=== PATIENT | male | born 2000 | race Hispanic/Latino ===

== ENCOUNTER 2022-05-01 20:09 | Emergency (ER) | payer OTHER, SELFPAY ==
--- NOTE | ~2022-05-01 | XR_ITS ---
EXAMINATION: XR foot LT min 3V DATE: 05/01/2022 20:43 INDICATION: Left foot pain, initial encounter TECHNIQUE: Dorsoplantar, lateral, and 2 oblique views of the left foot were obtained. COMPARISON: None. FINDINGS: There are acute, traumatic, closed, oblique shaft fractures of the second, third, and fourt h metatarsals. Fourth metatarsal fracture demonstrates one cortical width of lateral displacement of the distal fracture fragment. Bone alignment is otherwise normal. The joint spaces are maintained. No additional fracture is identified. There is dorsal soft tissue swelling of the foot overlying the fr actures. IMPRESSION: 1. Acute shaft fractures of the second, third, and fourth metatarsals. Reviewed, dictated and finalized at location [facility] [employer]
[2022-05-01 20:36] VITALS: BP 151/82; PULSE 112; RESP 18; TEMP 36.6; O2SAT 100
--- NOTE | 2022-05-01 21:36 | ED.LOWEXIN ---
HPI - Extremity Injury (Lower) General Chief Complaint: Extremity Injury, Lower Stated Complaint: foot injury Time Seen by Provider: 05/01/22 20:11 History of Present Illness HPI Narrative: Patient is a 21-year-old male who presents ER with left foot pain. Patient was cleaning an industrial mixer when he got his foot caught in the mixing mechanism. It was caught for 5 minutes. Has pain with attempting to bear weight. He has swelling to the foot and bruising to the lateral aspect of the dorsum. Reports some numbness in the left third digit. No additional injury or concern. He has no medical issues. She is not on any blood thinners. Related Data Allergies Allergy/AdvReac Type Severity Reaction Status Date / Time No Known Allergies Allergy Verified 05/01/22 20:43 Review of Systems Review of Systems: All systems reviewed & are unremarkable except as noted in HPI and below Musculoskeletal: Musculoskeletal: Denies back pain, Denies arthralgias and Denies joint swelling Comments: Foot pain and swelling Integumentary/Breasts: Skin/Breast: Denies rash and Denies skin ulcer Comments: Left foot bruise Neurologic: Denies syncope, Denies headache(s), Denies focal weakness and Reports numbness PMFSH Past Medical History Medical History (Updated 05/01/22 @ 23:09 by Michael Colby MD) Healthy adult male Surgical History Surgical History (Updated 05/01/22 @ 21:38 by Michael Colby MD) No history of previous surgery Exam Narrative: GENERAL: Well-appearing, well-nourished, and in no acute distress. HEAD: Normocephalic, atraumatic. ENT: Mucous membranes moist. EXTREMITIES: Tender palpation over the midfoot of the left foot. Contusion over the third through fourth metatarsals. Patient has decreased sharp touch in the third digit and in no other digits. Normal pulses and capillary refill in the left lower extremity. No tenderness or swelling in the ankle or knee. SKIN: Warm, dry, no rash. Contusion over the left midfoot and small abrasion to the left great toe NEURO: Sharp touch deficit in the left third digit. Alert and oriented x3. PSYCH: Normal mood and affect. Course Reevaluation(s) Reevaluation #1: Discussed the case with orthopedic surgery on-call Dr. Garcia. He recommends a well-padded short leg posterior splint. Date: 05/01/22 Time: 20:51 Vital Signs Vital signs: Vital Signs Temperature 97.8 F 05/01/22 20:36 Pulse Rate 112 H 05/01/22 20:36 Respiratory Rate 18 05/01/22 20:36 Blood Pressure 151/82 H 05/01/22 20:36 Pulse Oximetry 100 05/01/22 20:36 Oxygen Delivery Room Air 05/01/22 20:36 Temperature 97.8 F 05/01/22 20:36 Pulse Rate 91 05/01/22 22:55 Respiratory Rate 20 05/01/22 22:55 Blood Pressure 135/75 05/01/22 22:55 Pulse Oximetry 98 05/01/22 22:55 Oxygen Delivery Room Air 05/01/22 20:36 Procedures Orthopedic Splinting/Casting Injury #1: Splinting/Casting Date: 05/01/22 Splinting/Casting Time: 22:45 Side: left Lower Extremity Injury Location: foot Splint: customized in ED OCL: short leg Pre-Procedure Neuro Vascular Exam: normal Post-Procedure Neuro Vascular Exam: normal Other Orthopedic Equipment: crutches MDM - Extremity Injury (Lower) Imaging Data Radiologist's impression: ITS Impressions Foot X-Ray 05/01/22 20:45 IMPRESSION: 1. Acute shaft fractures of the second, third, and fourth metatarsals. Discharge Plan Discharge Clinical Impression: Metatarsal bone fracture Patient Disposition: Home, Self-Care Condition: Stable Instructions: Foot Fracture in Adults (ED) Additional Instructions: You have fractured 3 bones in your foot. You need to follow-up with an orthopedic surgeon for further treatment. Do not bear weight on your affected foot. Return the ER if you have increased pain, you have chest pain or shortness of breath, you have additional
[2022-05-01 22:55] VITALS: BP 135/75; PULSE 91; RESP 20; O2SAT 98
== END 2022-05-01 23:32 | disposition home or self-care (01) ==
PROVIDERS: Emergency Provider Emergency Medicine
DX: S92.321A Displaced fracture of second metatarsal bone, right foot, initial encounter for closed fracture (principal); S92.332A Displaced fracture of third metatarsal bone, left foot, initial encounter for closed fracture; S92.342A Displaced fracture of fourth metatarsal bone, left foot, initial encounter for closed fracture; W31.82XA Contact with other commercial machinery, initial encounter
CPT/HCPCS: 29515; 73630; 99284